=== PATIENT | male | born 1995 | race African-American/Black ===

== ENCOUNTER 2016-08-25 18:45 | Emergency (ER) | payer BC | END 2016-08-25 19:15 | disposition left against medical advice (07) | LOC: ER 18:45 | DX: R07.9 Chest pain, unspecified (principal); Z53.21 Procedure and treatment not carried out due to patient leaving prior to being seen by health care provider | CPT/HCPCS: 80048; 83735; 84484; 85025; 85610; 85730; 93005 ==